=== PATIENT | female | born 1990 | race Caucasian/White ===

== ENCOUNTER 2018-04-13 15:05 | Emergency (ER) | payer BC, OTHER ==
[~2018-04-13 15:05] MED LIST: Iopamidol 370 76% 100 ML VIAL ONE
[2018-04-13 16:21] LABS: #Eosinphils 0.1 thou/uL (0.0-0.7); #Lymphocytes 1.9 thou/uL (1.20-3.40); #Monocytes 0.8 thou/uL (0.11-0.59); #Neutrophils 5.4 thou/uL (1.40-6.50); %Basophils 0.6 % (0.0-1.0); %Eosinophils 1.2 % (0.0-10.0); %Lymphocytes 22.9 % (21.0-51.0); %Monocytes 9.7 % (0.0-10.0); %Neutrophils 65.7 % (42.0-75.0); Hemoglobin 11.6 g/dL (12.0-16.0); Mean Corpuscular HGB CONC 33.5 g/dL (32.0-36.0); Mean Corpuscular Hemoglobin 27.2 pg (27.0-31.0); Mean Corpuscular Volume 81.3 fL (78.0-98.0); Mean Platelet Volume 8.2 fL (7.4-10.4); Platelet Count 271 thou/uL (130-400); RBC Distribution Width 12.9 % (11.5-14.5); Red Blood Cell (RBC) Count 4.27 mill/uL (4.20-5.40); White Blood Cell (WBC) Count 8.2 thou/uL (4.8-10.8)
[2018-04-13 16:28] LABS: PTT 28.7 SEC (22.9-36.1); Prothrombin Time 13.5 SEC (12.0-14.7)
--- NOTE | 2018-04-13 16:30 | RAD ---
CHEST 1 VIEW: Date: 04/13/18 HISTORY: Dyspnea. COMPARISON: None. FINDINGS: Normal cardiac silhouette. Pulmonary vessels and hilum are normal. Costophrenic angles are clear. No consolidation or mass. No pneumothorax or osseous abnormalities. IMPRESSION: No acute cardiopulmonary process. POS: CET
--- NOTE | 2018-04-13 16:43 | CT ---
CT ANGIOGRAM OF THE CHEST: 04/13/18 HISTORY: Dyspnea and tachycardia. Shortness of breath. COMPARISON: None. TECHNIQUE: CT angiogram of the chest is performed in the axial plane. Three dimensional reformatted images are s ubmitted for interpretation. FINDINGS: No mediastinal mass, lymphadenopathy or hematoma. Heart size is within normal limits. No pericardial effusion. The descending thoracic aorta and abdominal aorta have a normal caliber. No periaortic fat stranding. Adequate contrast opacification of the pulmonary arterial system to the level of the segmental arteri es. No filling defect to suggest thromboembolism. Hypoattenuation of the liver likely due to hepatic steatosis. Trachea and central bronchi are patent. No consolidation or masses. No pleural effusion. N o pneumothorax. There is a subtle hyperdensity in the right hepatic lobe measuring 6 mm. A small flas h filling hemangioma is favored. Evaluation is incomplete. Nonemergent abdomen MRI can be performed. IMPRESSION: No evidence of pulmonary artery embolism to the level of the segmental arteries. POS: CET
[2018-04-13 16:44] LABS: ALT (SGPT) 23 U/L (8-55); AST (SGOT) 19 U/L (5-34); Albumin 3.8 g/dL (3.5-5.0); Alkaline Phosphatase 194 U/L (40-150); Anion Gap 13 mmol/L (10-20); BUN (Urea Nitrogen) 6 mg/dL (7.0-18.7); Bilirubin, Total 0.5 mg/dL (0.2-1.2); Calc. Creatinine Clearance 0 mL/min (70-130); Calcium 9.6 mg/dL (7.8-10.44); Carbon Dioxide 20 mmol/L (22-29); Chloride 109 mmol/L (98-107); Estimated GFR-MDRD Greater than 90; Globulin 3.5 g/dL (2.4-3.5); Glucose 82 mg/dL (70-105); Potassium 3.8 mmol/L (3.5-5.1); Protein, Total 7.3 g/dL (6.0-8.3); Sodium 138 mmol/L (136-145)
== END 2018-04-13 17:27 | disposition home or self-care (01) ==
LOC: ERS 15:05
DX: O99.89 Other specified diseases and conditions complicating pregnancy, childbirth and the puerperium (principal); R00.0 Tachycardia, unspecified; O99.283 Endocrine, nutritional and metabolic diseases complicating pregnancy, third trimester; E03.9 Hypothyroidism, unspecified; Z79.899 Other long term (current) drug therapy; Z3A.30 30 weeks gestation of pregnancy
CPT/HCPCS: 36415; 71045; 71275; 80053; 85025; 85610; 85730; 93005; 96360

== ENCOUNTER 2018-06-03 11:36 | Day surgery (SDC) | payer BC ==
[2018-06-03 11:51] VITALS: BP 123/70; TEMP 99.2; BMI 39.4
[2018-06-03 12:38] LABS: Amnisure Test No Membranes Rupture (No Rupture)
[2018-06-03 12:41] LABS: Amnisure Internal Control QC ACCEPTABLE (ACCEPTABLE)
[2018-06-03 14:23] LABS: Bilirubin Negative (Negative); Blood, Urine Trace (Negative); Clarity CLOUDY (Clear); Glucose, Urine (Dipstick) Negative (Negative); Leukocyte Small (Negative); Nitrite Negative (Negative); Protein, Urine (Dipstick) Negative (Neg-Trace); Specific Gravity, Urine 1.016 (1.002-1.036); Urobilinogen 0.2 mg/dL (0.2-1.0)
--- NOTE | 2018-06-03 14:23 | PDOC.LDHP ---
Labor and Delivery H&P Chief complaint: contractions HPI: 27 y/o at 38w2d, patient of Dr. Ordoñez, presents with ctx q 5-8 minutes. Denies VB, LOF, or decreased FM. Has some greenish discharge and burning with urination. ROS neg for HEENT, cv, pulm, gi, gu, neuro, psych, skin, musculoskeletal, or consitutional symptoms other than mentioned above. OB History Details: Prior term Current complications: other (tachycardia) Past Medical History: Hypothyroidism Tachycardia Uterus didelphys Current medications: pre-tania vitamins, other (levothyroxine, metoprolol) Allergies/Adverse Reactions: Allergies Allergy/AdvReac Type Severity Reaction Status Date / Time No Known Allergies Allergy Verified 06/03/18 11:51 Social history: none - Physical Exam Vital signs reviewed and normal: yes Abnormal vital signs: tachycardia, consistent with patient's baseline General: NAD, resting Lungs: nonlabored breathing Abdomen: gravid Extremeties: no edema FHT: category 1 (140s, mod variability, + accels, no decels) [place] contractions every: q5-8 mins, spaced out while here - Vaginal Exam cm dilated: 5 (no change after 1 hour) Effacement: 75% Station: -2 - Assessment 27 y/o at 38w2d with no e/o active labor. status reassuring with reactive NST. VP3 + for gardnerella. UA consistent with contamination. - Plan -: D/c home with precautions. Given Rx for Flagyl x 7 days.
[2018-06-03 14:25] LABS: Bacteria/HPF Rare-Few HPF (None Seen); Hyaline Casts/LPF 0-3 HYALINE CAST LPF (0-3 Hyaline); Pathc Cast-AUWi Flag 0.43 (0-2.49)
== END 2018-06-03 14:18 | disposition home or self-care (01) ==
LOC: L&D/OP 11:36
PROVIDERS: ATTEND Student in an Organized Health Care Education/Training Program
DX: O47.1 False labor at or after 37 completed weeks of gestation (principal); Z3A.38 38 weeks gestation of pregnancy
CPT/HCPCS: 81001; 84112; 87086; 87480; 87510; 87660

== ENCOUNTER 2018-06-04 10:25 | Inpatient (IN) | payer BC ==
[2018-06-04 10:53] VITALS: BMI 31.4
[2018-06-04] MEDS ORDERED: Ondansetron PF 4 MG/2 ML Vial IVP PRN ×2 (11:04→14:40)
[2018-06-04] MEDS ORDERED: Ibuprofen 800 MG TAB PO PRN (11:04)
[2018-06-04] MEDS ORDERED: Lidocaine 1% (PF) 30 ML VIAL SC PRN (11:04)
[2018-06-04] MEDS ORDERED: Lactated Ringer's 1,000 ML IV SCH ×2 (11:15)
[2018-06-04 12:09] LABS: Hemoglobin 12.6 g/dL (12.0-16.0); Mean Corpuscular Hemoglobin 26.5 pg (27.0-31.0); Mean Corpuscular Volume 80.4 fL (78.0-98.0); Mean Platelet Volume 8.2 fL (7.4-10.4); Platelet Count 241 thou/uL (130-400); RBC Distribution Width 14.1 % (11.5-14.5); Red Blood Cell (RBC) Count 4.75 mill/uL (4.20-5.40); White Blood Cell (WBC) Count 11.4 thou/uL (4.8-10.8)
[2018-06-04 12:50] LABS: Syphilis Antibody Nonreactive (Nonreactive); Syphilis Antibody Index 0.03 S/CO (<1.00 Non-Reactive)
[2018-06-04 12:51] LABS: HBSAg Index 0.16 S/CO (0-0.99); Hep B Surf Ag Non-Reactive S/CO (NonReactive)
--- NOTE | 2018-06-04 12:59 | PDOC.LDHP ---
Labor and Delivery H&P Chief complaint: contractions HPI: 27yo at 38w3d by LMP with painful contractions and cervical change. Current gestational age (weeks): 38 Due date: 06/15/18 Dating criteria: last menstrual period Grav: 2 Para: 1 Current complications: none Abnormal US findings: No Past Medical History: hypothyroid, tachycardia, maternal VSD (s/p normal maternal and echo during this ), uterus didelphys Current medications: pre- vitamins, other (metoprolol 12.5 BID, levothyroxine 50mcg) Previous surgical history: none Allergies/Adverse Reactions: Allergies Allergy/AdvReac Type Severity Reaction Status Date / Time No Known Allergies Allergy Verified 06/03/18 11:51 Social history: none - Physical Exam Vital signs reviewed and normal: yes General: breathing through contractions Heart: RRR Lungs: CTAB Abdomen: gravid Extremeties: no edema FHT: category 1 - Vaginal Exam cm dilated: 8 Effacement: 100% Station: 1+ - OB Labs Blood type: O RH: positive Antibody Screen: negative HIV: negative RPR: negative HEPSAg: negative 1 hour GCT: negative GBS: negative Urine drug screen: negative Rubella: immune - Assessment L&D Assessment: term patient in labor - Plan Plan: admit to L&D, labor augmentation if indicated, informed consent obtained, anesthesia consult for pain management
[2018-06-04] MEDS: NS / Oxytocin 40 units/1000ml 1,000 ML IV PRN ×2 (13:59→15:36)
--- NOTE | 2018-06-04 14:37 | PDOC.OPDEL ---
OB Operative/Delivery Note Delivery Dr/Surgeon: Smita Assist: n/a Pre-Delivery Diagnosis: active labor Procedure/Post Delivery Dx: spontaneous vaginal delivery Weeks gestation: 38 Anesthesia: local - Findings A Sex: female - 1 min: 9 - 5 min: 9 - Additional Findings/Plan Placenta delivered: spontaneous Repaired Obstetrical Laceration: 1st degree (repaired with 2-0 vicryl for hemostasis) Estimated blood loss: 400 qbl pending Post delivery plan: routine recovery
[2018-06-04] MEDS ORDERED: Bisacodyl 10 MG SUPP PR PRN (14:40)
[2018-06-04] MEDS ORDERED: Lanolin Ointment 7 GM TUBE TOP PRN (14:40)
[2018-06-04] MEDS ORDERED: HYDROcodone/Acetaminophen 5/325 mg Tablet PO PRN ×2 (14:40)
[2018-06-04] MEDS ORDERED: Benzocaine/Menthol 20-0.5% 60 ML CAN TOP PRN (14:40)
[2018-06-04] MEDS ORDERED: Preparation H Ointment 28 GM TUBE PR PRN (14:40)
[2018-06-04] MEDS ORDERED: diphenhydrAMINE 25 MG CAP PO PRN (14:40)
[2018-06-04] MEDS ORDERED: Milk Of Magnesia 30 ML UDCUP PO PRN (14:40)
[2018-06-04] MEDS ORDERED: NS / Oxytocin 40 units/1000ml 1,000 ML IV SCH (14:45)
[2018-06-04] MEDS ORDERED: Ferrous Sulfate 325 MG TAB PO SCH (17:00)
[2018-06-04] MEDS: Ibuprofen 800 MG TAB PO SCH (22:04)
[2018-06-04] MEDS: Docusate Calcium (SURFAK) 240 MG CAP PO SCH (22:04)
[2018-06-05] MEDS: Ibuprofen 800 MG TAB PO SCH (05:41)
--- NOTE | 2018-06-05 08:09 | DIS ---
DATE OF ADMISSION: 06/04/2018 DATE OF DISCHARGE: 06/05/2018 ADMITTING DIAGNOSIS: Labor at 38 weeks. DISCHARGE DIAGNOSIS: Labor at 38 weeks. PROCEDURE: Term spontaneous vaginal delivery. CONSULTATIONS: None. HOSPITAL COURSE: The patient is a 27-year-old female who presented to labor and delivery on 06/04/20 18 with painful contractions. The patient was noted to have a cervical exam of 8 cm and +1 station a nd was admitted for expectant management. Patient's labor course resulted in an uncomplicated term s pontaneous vaginal delivery. Her course has been uncomplicated. She denies any pain issu es. Reports she is tolerating p.o., voiding on her own, having decreased lochia and had a bowel move ment. PHYSICAL EXAMINATION: VITAL SIGNS: Today shows blood pressure 112/63, temperature 98, pulse of 84, respiratory rate of 18. GENERAL: She appears to be in no acute distress. She is alert and oriented, cooperative and pleasan t to interact with. ABDOMEN: Fundus is firm at the umbilicus -2. EXTREMITIES: Nontender, nonedematous. LABORATORY DATA: Her predelivery hemoglobin 12.6, hematocrit 38.2, platelets of 241,000. DISCHARGE INSTRUCTIONS: The patient will be discharged to home pending discharge of the baby. She h as been given instructions to follow up with Dr. Ordoñez in 6 weeks and has been asked to call Dr. Dmitri park on Thursday to ensure if she need to be seen sooner. She has also been given instructions to see k medical attention if she experiences fever, increasing pain or bleeding. Patient can take over-the -counter ibuprofen as needed for pain control and is to continue her home medications, which include levothyroxine 50 mcg daily and metoprolol for rate control.
[2018-06-05] MEDS ORDERED: Levothyroxine Sodium 50 MCG TAB PO SCH (08:30)
[2018-06-05] MEDS ORDERED: Prenatal Vitamin 1 TAB PO SCH (09:00)
[2018-06-05] MEDS ORDERED: Adacel (T-DAP) 0.5 ML VIAL IM ONE (09:00)
[2018-06-05] MEDS: Docusate Calcium (SURFAK) 240 MG CAP PO SCH (09:36)
[2018-06-05 11:45] VITALS: BP 115/72; TEMP 98
[2018-06-06] MEDS ORDERED: Levothyroxine Sodium 50 MCG TAB PO SCH (06:00)
== END 2018-06-05 16:33 | disposition home or self-care (01) | DRG 807 ==
LOC: L&D/OP 10:25 → L&D 14:30 → 3SE 17:46
PROVIDERS: ADMIT Student in an Organized Health Care Education/Training Program; ATTEND Student in an Organized Health Care Education/Training Program
PROC: 10E0XZZ Delivery of Products of Conception, External Approach (ICD-10-PCS; principal; 2018-06-04)
PROC: 0HQ9XZZ Repair Perineum Skin, External Approach (ICD-10-PCS; 2018-06-04)
PROC: 10907ZC Drainage of Amniotic Fluid, Therapeutic from Products of Conception, Via Natural or Artificial Opening (ICD-10-PCS; 2018-06-04)
DX: O70.0 First degree perineal laceration during delivery (principal); Z37.0 Single live birth; Z3A.38 38 weeks gestation of pregnancy; O77.0 Labor and delivery complicated by meconium in amniotic fluid; O99.284 Endocrine, nutritional and metabolic diseases complicating childbirth; E03.9 Hypothyroidism, unspecified; O34.03 Maternal care for unspecified congenital malformation of uterus, third trimester; Q51.20 Other doubling of uterus, unspecified; Z79.899 Other long term (current) drug therapy
CPT/HCPCS: 81001; 84112; 85027; 86780; 86850; 86900; 86901; 87086; 87340; 87480; 87510; 87660; 99285; J2001